=== PATIENT | male | born 1960 | race Caucasian/White ===

== ENCOUNTER 2017-12-22 12:47 | Inpatient (IN) | payer OTHER ==
[~2017-12-22] VITALS: Ht 175.3 cm; Wt 59.9 kg
[2017-12-22] MEDS ORDERED: methylPREDNISolone SOD SUCC 125 MG/2ML VIAL ONE (12:53)
[2017-12-22] MEDS ORDERED: ALBUTEROL FS 2.5 MG/3 ML VIAL.NEB ONE (12:56)
[2017-12-22] MEDS ORDERED: IPRATROPIUM NEB FS 0.5 MG/2.5 ML AMPUL.NEB ONE (12:56)
--- NOTE | 2017-12-22 12:57 | NUR ---
SOB X TODAY, HX OF COPD, D/C FROM [facility] YESTERDAY FOR COPD. PT LABORED BREATHING, USING ACCESSORY MUSCLE, NON PRODUCTIVE COUGH, WHEEZING. GETTING BREATHING TX. PT SEEN & EVAL'D DR. HUTTON. ON MONITOR. MEDICATED PER ERMD ORDER. WILL CONT TO MONITOR.
[2017-12-22] MEDS ORDERED: ALBUTEROL FS 2.5 MG/3 ML VIAL.NEB CONTNEB ONE (13:00)
[2017-12-22] MEDS ORDERED: IPRATROPIUM NEB FS 0.5 MG/2.5 ML AMPUL.NEB NEB ONE (13:00)
[2017-12-22] MEDS ORDERED: methylPREDNISolone SOD SUCC 125 MG/2ML VIAL IV ONE (13:00)
[2017-12-22 13:21] LABS: BASOPHILS % (AUTO) 0.3 % (0.0-2.0); CALCIUM, SERUM 8.3 mg/dL (8.5-10.1); CARBON DIOXIDE 37 mmol/L (21-32); CHLORIDE 100 mmol/L (98-107); CREATININE 0.9 mg/dL (0.6-1.3); EOSINOPHILS % (AUTO) 2.7 % (0.0-6.0); GLUCOSE 99 mg/dL (74-106); HEMATOCRIT 42 % (39-51); HEMOGLOBIN 13.4 g/dL (13.5-17.5); LYMPHOCYTES # (AUTO) 1.1 /CMM (0.8-4.8); LYMPHOCYTES % (AUTO) 20.2 % (20.0-44.0); MEAN CORPUSCULAR HGB CONC 32 g/dl (31.0-36.0); MEAN CORPUSCULAR VOLUME 102 fL (80-96); MONOCYTES # (AUTO) 0.5 /CMM (0.1-1.30); MONOCYTES % (AUTO) 9.2 % (2.0-12.0); NEUTROPHILS # (AUTO) 3.7 /CMM (1.8-8.9); NEUTROPHILS % (AUTO) 67.6 % (43.0-81.0); PLATELET COUNT (AUTO) 149 /CMM (150-450); POTASSIUM 3.9 mmol/L (3.5-5.1); RDW COEFFICIENT OF VARIATION 14.8 (11.5-15.0); RED BLOOD CELL COUNT(AUTO) 4.07 MIL/uL (4.5-6.0); SODIUM SERUM 135 mmol/L (136-145); UREA NITROGEN, BLOOD 25 mg/dL (7-18); WHITE BLOOD COUNT (AUTO) 5.4 K/uL (4.3-11.0)
[2017-12-22 13:29] LABS: TROPONIN I < 0.017 ng/mL (0.00-0.056)
--- NOTE | 2017-12-22 13:31 | NUR ---
PT STILL GETTING BREATHING TX. PT STS " I FEEL A LITTLE BIT BETTER ". VSS. NO ACUTE DISTRESS NOTED @ THIS TIME. WILL CONT TO MONITOR.
[2017-12-22 13:33] LABS: ALANINE AMINOTRANSFERASE 43 U/L (12-78); ALBUMIN 3.7 g/dL (3.4-5.0); ALKALINE PHOSPHATASE 44 U/L (46-116); ASPARTATE AMINOTRANSFERASE 30 U/L (15-37); B-TYPE NATRIURETIC PEPTIDE 380 PG/ML (0-125); BILIRUBIN,DIRECT 0.3 mg/dL (0.0-0.2); BILIRUBIN,TOTAL 1.3 mg/dL (0.2-1.0); TOTAL PROTEIN, SERUM 6.9 g/dL (6.4-8.2)
--- NOTE | 2017-12-22 13:53 | NUR ---
PAGED EPIC FOR PANEL
[2017-12-22] MEDS ORDERED: LEVOFLOXACIN 750 MG /D5W 150ML 150 ML IV ONE (14:00)
--- NOTE | 2017-12-22 14:43 | NUR ---
CALLED NURSE SUP FOR TELE BED
--- NOTE | 2017-12-22 15:21 | NUR ---
REPORT GIVEN TO SALO PLASENCIA FOR SOL UPON ADMISSION.
[2017-12-22] MEDS ORDERED: ALBU18HF2 IH (15:28)
[2017-12-22] MEDS ORDERED: STRIBILD PO (15:28)
[2017-12-22] MEDS ORDERED: METH4TAB3 PO (15:28)
[2017-12-22] MEDS ORDERED: DAPS100T2 PO (15:28)
[2017-12-22] MEDS ORDERED: LEVO500T75 PO (15:28)
--- NOTE | 2017-12-22 15:30 | NUR ---
CHANGE OF SHIFT REPORT PT RESTING COMFORTABLY IN BED. NO S/S OR C/O PAIN OR DISTRESS NOTED. SIDE RAILS UP X2, CALL LIGHT LEFT WITHIN REACH. PT KEPT CLEAN, DRY, AND COMFORTABLE. NO SIGNIFICANT CHANGES FROM PREVIOUS SHIFT. WILL GIVE REPORT TO RODRIGO PLASENCIA.
[2017-12-22 16:00] VITALS: BP 136/69
[2017-12-22] MEDS ORDERED: IV NS 0.9% 1,000 ML IV PRN (17:53)
[2017-12-22] MEDS ORDERED: ACETAMINOPHEN 325 MG TABLET PO PRN (18:00)
[2017-12-22] MEDS ORDERED: HYDROCODONE/APAP 5/325MG 1 EACH TABLET PO PRN (18:00)
[2017-12-22] MEDS ORDERED: ONDANSETRON HCL/PF 4 MG/2 ML VIAL IVP PRN (18:00)
[2017-12-22] MEDS ORDERED: Z GUARD REMEDY 2 OZ OINT TP PRN (18:00)
[2017-12-22] MEDS: MORPHINE SULFATE INJ 4 MG/ML DISP.SYRIN IV PRN (18:41)
[2017-12-22] MEDS: ENOXAPARIN SODIUM 40 MG/0.4 ML DISP.SYRIN SQ SCH (18:45)
--- NOTE | 2017-12-22 18:52 | NUR ---
CHANGE OF SHIFT REPORT PT RESTING COMFORTABLY IN BED. NO S/S OR C/O PAIN OR DISTRESS NOTED. SIDE RAILS UP X2, CALL LIGHT LEFT WITHIN REACH. PT KEPT CLEAN, DRY, AND COMFORTABLE. NO SIGNIFICANT CHANGES SINCE ADMISSION. WILL GIVE REPORT TO RODRIGO PLASENCIA.
--- NOTE | 2017-12-22 18:53 | NUR ---
TELE ADMIT FROM ER AFTER REPORT RECEIVED FROM TRISH PLASENCIA. PATIENT ORIENTED TO PRIMARY RN, UNIT, ROOM, BED, AND UNIT POLICIES REGARDING PATIENT CARE AND VISITING HOURS. PATIENT NOW ON CONTINUOUS TELEMETRY MONITORING. READING ON ARRIVAL IS SR 85. PATIENT PLACED ON BEDSIDE 02, WEIGHED BY BED SCALE AND ENCOURAGED TO CALL IF HE NEEDS ANYTHING. ALL QUESTIONS AND CONCERNS ADDRESSED. PATIENT VERBALIZED UNDERSTANDING. Addendum: 12/22/17 at 1856 by SALO PERLA RN CHANGE TIME. [id number]
--- NOTE | 2017-12-22 19:20 | NUR ---
COLD PRESS OPERATOR OPENING NOTES RECEIVED PATIENT SITTING IN BED, AWAKE ALERT AND ORIENTED X4, ABLE TO MAKE NEEDS KNOWN , RESPIRATIONS ARE EVEN AND UNLABORED AT THIS TIME WITH EQUAL RISE AND FALL OF CHEST. ON 02 5L VIA NC O2 SAT 96-98%. DENIES ANY PAIN OR DISCOMFORT AT THIS TIME,IV SITE TO LEFT AC #18 G INTACT AND PATENT, NO REDNESS, NO INFILTRATION PRESENT, IVF RUNNING ORDERED. ORIENTED TO STAFF AND CALL LIGHT KEPT WITHIN REACH, SAFETY PRECAUTIONS IN PLACE, LOW BED AND LOCKED. ALL NEEDS ATTENDED AT THIS TIME, WILL CONTINUE TO MONITOR.
--- NOTE | 2017-12-22 19:21 | NUR ---
MEDICAL BILLING SERVICE NOTES ON APARTMENT HOTEL MANAGER SR 76
[2017-12-22] MEDS: CEFTRIAXONE 1 G in IV D5W 50 ML IV SCH (19:29)
[2017-12-22 20:00] VITALS: BP 134/85
[2017-12-22] MEDS: AZITHROMYCIN 500 MG in IV D5W 250 ML IV SCH (20:15)
[2017-12-22] MEDS: ALBUTEROL FS 2.5 MG/0.5 ML VIAL.NEB NEB SCH (20:23)
[2017-12-22] MEDS: IPRATROPIUM NEB FS 0.5 MG/2.5 ML AMPUL.NEB NEB SCH (20:24)
[2017-12-22] MEDS ORDERED: FLUCONAZOLE IN NS 100 MG in PREMIX 1 EA IV SCH ×2 (20:30)
[2017-12-22] MEDS: MONTELUKAST SODIUM (10MG) 10 MG TABLET PO SCH (21:21)
[2017-12-23] VITALS: BP 130/89
[2017-12-23] MEDS: MORPHINE SULFATE INJ 4 MG/ML DISP.SYRIN IV PRN ×4 (00:04→20:07)
--- NOTE | 2017-12-23 00:05 | NUR ---
internist notes patient complaint of pain to head 01/06 requesting for morphine vital signs assessed noted b/p- 130/89, heart rate 72. resp 18 spo2 95% on 3L temp 97.8 no distress present at this time
[2017-12-23 04:00] VITALS: BP 134/73
--- NOTE | 2017-12-23 04:52 | NUR ---
PROFESSIONAL SHOPPER NOTES PATIENT COMPLAINT OF PAIN 10/10 HEADACHE. REQUESTING FOR MORPHINE. PRN GIVEN ORDERED VITAL SIGNS ASSESSED WNL B/P-134/73,HR 66,RESP20 TEMP98.2,98% 3LVIA NC WILL CONTINUE TO MONITOR FOR EFFECTIVENESS
--- NOTE | 2017-12-23 06:27 | NUR ---
SUBWAY GUARD CLOSING NOTES PATIENT IN BED,AWAKE ALERT AND ORIENTED X4,RESPIRATIONS EVEN AND UNLABORED WITH EQUAL RISE AND FALL OF CHEST ON 02 3L VIA NC SPO2 AT 98%. IV SITE TO LEFT AC #18 INTACT AND PATENT, NO REDNESS, NO INFILTRATION PRESENT, IVF RUNNING ORDERED, DENIES ANY PAIN OF DISCOMFORT AT THIS TIME, ALL NEEDS ATTENDED, ON CHIMNEY MECHANIC SR 66, CALL LIGHT KEPT WITHIN REACH , SAFETY PRECAUTIONS IN PLACE, REMAINS SAFE AND COMFORTABLE AT THIS TIME, WILL CONTINUE TO MONITOR AND ENDORSE TO NEXT SHIFT FOR CONTINUITY OF CARE.
[2017-12-23 07:14] LABS: BASOPHILS % (AUTO) 0.1 % (0.0-2.0); EOSINOPHILS % (AUTO) 0.8 % (0.0-6.0); HEMATOCRIT 37 % (39-51); HEMOGLOBIN 12.2 g/dL (13.5-17.5); LYMPHOCYTES # (AUTO) 0.8 /CMM (0.8-4.8); LYMPHOCYTES % (AUTO) 21.1 % (20.0-44.0); MEAN CORPUSCULAR HGB CONC 33 g/dl (31.0-36.0); MEAN CORPUSCULAR VOLUME 102 fL (80-96); MONOCYTES # (AUTO) 0.4 /CMM (0.1-1.30); MONOCYTES % (AUTO) 11.2 % (2.0-12.0); NEUTROPHILS # (AUTO) 2.4 /CMM (1.8-8.9); NEUTROPHILS % (AUTO) 66.8 % (43.0-81.0); PLATELET COUNT (AUTO) 146 /CMM (150-450); RDW COEFFICIENT OF VARIATION 14.7 (11.5-15.0); WHITE BLOOD COUNT (AUTO) 3.7 K/uL (4.3-11.0)
[2017-12-23 07:20] LABS: BILIRUBIN,TOTAL 0.7 mg/dL (0.2-1.0); MAGNESIUM 2.1 mg/dL (1.8-2.4); PHOSPHORUS 3.3 mg/dL (2.5-4.9)
[2017-12-23] MEDS: IPRATROPIUM NEB FS 0.5 MG/2.5 ML AMPUL.NEB NEB SCH ×4 (07:28→19:49)
[2017-12-23] MEDS: ALBUTEROL FS 2.5 MG/0.5 ML VIAL.NEB NEB SCH ×4 (07:28→19:49)
[2017-12-23 08:00] VITALS: BP 128/78
[2017-12-23] MEDS: methylPREDNISolone SOD SUCC 125 MG/2ML VIAL IV SCH ×3 (09:30→16:21)
[2017-12-23] MEDS: PANTOPRAZOLE 40 MG TABLET.DR PO SCH (09:30)
--- NOTE | 2017-12-23 10:40 | NUR ---
Nursing notes PATIENT IN BED,AWAKE ALERT AND ORIENTED X4,RESPIRATIONS EVEN AND UNLABORED WITH EQUAL RISE AND FALL OF CHEST ON 02 3L VIA NC SPO2 AT 98%. IV SITE TO LEFT AC #18 INTACT AND PATENT, NO REDNESS, NO INFILTRATION PRESENT, IVF RUNNING ORDERED, DENIES ANY PAIN OF DISCOMFORT AT THIS TIME, ALL NEEDS ATTENDED, ON COMMERCIAL LINES ACCOUNT MANAGER SR 66, CALL LIGHT KEPT WITHIN REACH , SAFETY PRECAUTIONS IN PLACE, REMAINS SAFE AND COMFORTABLE AT THIS TIME, WILL CONTINUE TO MONITOR
--- NOTE | 2017-12-23 10:41 | NUR ---
Nursing notes spoke to passenger representative from [facility] request that patient documents be sent over to them once the patient gets discharged. phone number [phone] fax number [phone].
[2017-12-23 16:00] VITALS: BP 144/89
[2017-12-23] MEDS: CEFTRIAXONE 1 G in IV D5W 50 ML IV SCH (17:58)
[2017-12-23] MEDS: AZITHROMYCIN 500 MG in IV D5W 250 ML IV SCH (18:36)
--- NOTE | 2017-12-23 19:20 | NUR ---
MS RN OPENING NOTE Patient was seen sitting at the edge of the bed AAOx4, breathing on 3L O2 NC with no SOB, and no signs of acute distress. NS is running at 75ml/hr through the left AC. Bed is low/locked, two side rails up, and call hess within reach. Will continue to monitor.
[2017-12-23 20:00] VITALS: BP 129/77
--- NOTE | 2017-12-23 20:07 | NUR ---
MS RN NOTE - Morphine Patient requested morphine for pain in his neck, back, and abdomen. Patient states that his pain is a 10/10 and that the abdominal pain is from frequent coughing (dx of COPD exacerbation). No PO pain meds available except Tylenol. 4mg of IV morphine was given per orders. Will continue to monitor.
[2017-12-23] MEDS: FLUCONAZOLE IN NS,PREMIX 400 MG in PREMIX 1 EA IV SCH ×2 (20:11)
[2017-12-23] MEDS: ENOXAPARIN SODIUM 40 MG/0.4 ML DISP.SYRIN SQ SCH (20:12)
[2017-12-23 20:48] VITALS: BP 129/72
[2017-12-23] MEDS: MONTELUKAST SODIUM (10MG) 10 MG TABLET PO SCH (22:53)
--- NOTE | 2017-12-23 23:30 | NUR ---
MS RN NOTE - Pt refused IV fluids After patient received IV antibiotics, he asked to be disconnected from his IV for the rest of the night. I informed the patient that the doctor ordered continuous IV fluids of normal saline and educated him on the purpose of supplemental IV hydration, as well as its effects on vital signs and lab values. Patient said that he understood but still refused IV fluids.
[2017-12-24] MEDS: MORPHINE SULFATE INJ 4 MG/ML DISP.SYRIN IV PRN ×6 (00:13→20:51)
--- NOTE | 2017-12-24 00:13 | NUR ---
MS RN NOTE - Morphine Patient requested morphine for pain in his neck, back, and abdomen. Patient states that his pain is a 9/10 and that the abdominal pain is from frequent coughing (dx of COPD exacerbation). No PO pain meds available except Tylenol. 4mg of IV morphine was given per orders. Patient tolerated last dose of morphine well with no adverse side effects or decrease in respirations. Will continue to monitor.
--- NOTE | 2017-12-24 04:19 | NUR ---
MS RN NOTE - Morphine Patient requested morphine for pain in his head, neck, back, and abdomen. Patient states that his pain is a 10/10 and that the abdominal pain is from frequent coughing (dx of COPD exacerbation). No PO pain meds available except Tylenol. 4mg of IV morphine was given per orders. Patient tolerated last dose of morphine well with no adverse side effects or decrease in respirations. Will continue to monitor.
--- NOTE | 2017-12-24 07:31 | NUR ---
MS RN CLOSING NOTE Patient is AAOx4, breathing on 2L O2 NC with no SOB, and no signs of acute distress. Patient slept intermittently overnight but had no complications and remains in stable condition. Bed is low/locked, two side rails up, and call hess within reach. Patient care endorsed to day shift nurse.
--- NOTE | 2017-12-24 07:48 | NUR ---
MS RN OPENING NOTES RECEIVED PT SITTING AT THE EDGE OF BED. PT IS A/O X4, AFEBRILE. RESPIRATIONS ARE EVEN AND UNLABORED, NOT IN ANY ACUTE DISTRESS NOTED. CURRENTLY ON O2 @2L/MIN VIA NC SATURATING AT 94%. PT C/O PAIN TO ABDOMEN FROM "COUGHING TOO MUCH." PT C/O PAIN 11/06 AND PT AWARE OF TIME OF NEXT PAIN MEDICATION DUE. PT STATES, "I WILL WAIT FOR IT." PT IS AMBULATORY, ABLE TO MAKE NEEDS KNOWN. IV SITE INTACT, NO INFILTRATION NOTED. DRESSING KEPT CLEAN AND DRY. PT REFUSES TO RECEIVE IV FLUIDS. EXPLAINED THE RISKS AND BENEFITS, STILL NOTED WITH REFUSAL. EDUCATED PT TO DRINK FLUIDS TOLERATED TO STAY HYDRATED, PT VERBALIZED UNDERSTANDING. SAFETY MEASURES ARE IN PLACE. CALL LIGHT IS LEFT WITHIN REACH. WILL CONTINUE TO MONITOR THROUGHOUT SHIFT FOR CONTINUITY OF CARE.
[2017-12-24 08:00] VITALS: BP_SYST 131; BP_DIAS 77; BP_DIAS 78
[2017-12-24] MEDS: IPRATROPIUM NEB FS 0.5 MG/2.5 ML AMPUL.NEB NEB SCH ×4 (08:14→20:08)
[2017-12-24] MEDS: ALBUTEROL FS 2.5 MG/0.5 ML VIAL.NEB NEB SCH ×4 (08:14→20:08)
[2017-12-24] MEDS: PANTOPRAZOLE 40 MG TABLET.DR PO SCH (08:20)
[2017-12-24] MEDS: methylPREDNISolone SOD SUCC 125 MG/2ML VIAL IV SCH ×3 (08:21→16:49)
--- NOTE | 2017-12-24 18:31 | NUR ---
MS RN CLOSING NOTES ALL DUE MEDS GIVEN, NEEDS MET AND RENDERED. PT REMAINS A/O X4, AFEBRILE. RESPIRATIONS ARE EVEN AND UNLABORED, NOT IN ANY ACUTE DISTRESS NOTED. PAIN CONTROLLED BY MORPHINE. DENIES ANY N/V AT THIS TIME. CURRENTLY ON O2 @3L/MIN VIA NC, SATURATING 96%. IV SITE INTACT, NO INFILTRATION NOTED. DRESSING KEPT CLEAN AND DRY. PT REFUSES IV FLUIDS AT THIS TIME. ENCOURAGED PT TO DRINK TOLERATED TO STAY HYDRATED. SAFETY MEASURES ARE IN PLACE. REMINDED PT TO USE CALL LIGHT WHEN ASSISTANCE IS NEEDED, CALL LIGHT IS LEFT WITHIN REACH. WILL ENDORSE TO NEXT SHIFT FOR CONTINUITY OF CARE.
[2017-12-24] MEDS: CEFTRIAXONE 1 G in IV D5W 50 ML IV SCH (18:43)
--- NOTE | 2017-12-24 19:00 | NUR ---
MS RN OPENING NOTE RECEIVE PATIENT AWAKE IN BED, A/O X 3, NO SOB OR DISTRESS NOTED, CALL LIGHT WITHIN REACH. SAFETY MEASURES IMPLEMENTED. WILL CONTINUE TO MONITOR THROUGHOUT SHIFT. Addendum: 12/25/17 at 0423 by DENNY DOS SANTOS RN PT REFUSED IV FLUIDS NS DESPITE EXPLAINING RISKS AND BENEFITS PER PT HE IS DRINKING WELL
[2017-12-24 20:00] VITALS: BP 147/82
[2017-12-24] MEDS ORDERED: AZITHROMYCIN 250 MG TABLET PO SCH (20:00)
[2017-12-24] MEDS: ENOXAPARIN SODIUM 40 MG/0.4 ML DISP.SYRIN SQ SCH (20:23)
[2017-12-24] MEDS: FLUCONAZOLE IN NS,PREMIX 400 MG in PREMIX 1 EA IV SCH ×2 (20:24)
[2017-12-24] MEDS: MONTELUKAST SODIUM (10MG) 10 MG TABLET PO SCH (21:32)
[2017-12-25] MEDS: MORPHINE SULFATE INJ 4 MG/ML DISP.SYRIN IV PRN ×3 (00:52→10:05)
--- NOTE | 2017-12-25 06:15 | NUR ---
MS RN CLOSING NOTES ASLEEP AND EASILY AWAKEN, STABLE, NOT IN DISTRESS. 2LPM VIA NC 02 SAT AT 96%, RESPIRATION EVEN AND UNLABORED. KEPT CLEAN AND DRY AND COMFORTABLE, ALL NURSING CARE RENDERED. NEEDS ATTENDED AND ANTICIPATED.NO COMPLAIN OF PAIN AT THIS TIME. ON LOW BED AT ALL TIMES TO ENSURE SAFETY. SAFE HAZARD FREE ENVIRONMENT PROVIDED. CALL LIGHT WITHIN EASY TO REACH. WILL ENDORSE NEXT SHIFT CONTINUITY OF CARE.
--- NOTE | 2017-12-25 06:17 | NUR ---
REFUSES TO RECEIVE IVF NS FLUIDS. DESPITE EXPLAINING RISKS AND BENEFITS, STILL REFUSE, EDUCATED PT TO DRINK FLUIDS TOLERATED TO STAY HYDRATED, PT VERBALIZED UNDERSTANDING.
[2017-12-25 06:54] LABS: CALCIUM, SERUM 8.7 mg/dL (8.5-10.1); CREATININE 0.8 mg/dL (0.6-1.3); MAGNESIUM 2.2 mg/dL (1.8-2.4); PHOSPHORUS 4.4 mg/dL (2.5-4.9); POTASSIUM 4.8 mmol/L (3.5-5.1)
--- NOTE | 2017-12-25 07:25 | NUR ---
MS RN OPENING NOTES RECEIVED PT SITTING AT THE EDGE OF BED. PT IS A/O X4, AFEBRILE. RESPIRATIONS ARE EVEN AND UNLABORED, NOT IN ANY ACUTE DISTRESS NOTED. CURRENTLY ON O2 @2L/MIN VIA NC SATURATING AT 95%. PT IS AMBULATORY, ABLE TO MAKE NEEDS KNOWN. IV SITE INTACT, NO INFILTRATION NOTED. DRESSING KEPT CLEAN AND DRY. PT REFUSES TO RECEIVE IV FLUIDS. EXPLAINED THE RISKS AND BENEFITS, STILL NOTED WITH REFUSAL. EDUCATED PT TO DRINK FLUIDS TOLERATED TO STAY HYDRATED, PT VERBALIZED UNDERSTANDING. SAFETY MEASURES ARE IN PLACE. CALL LIGHT IS LEFT WITHIN REACH. WILL CONTINUE TO MONITOR THROUGHOUT SHIFT FOR CONTINUITY OF CARE.
[2017-12-25] MEDS: IPRATROPIUM NEB FS 0.5 MG/2.5 ML AMPUL.NEB NEB SCH (07:35)
[2017-12-25] MEDS: ALBUTEROL FS 2.5 MG/0.5 ML VIAL.NEB NEB SCH (07:35)
[2017-12-25 07:47] LABS: HEMATOCRIT 40 % (39-51); HEMOGLOBIN 13.5 g/dL (13.5-17.5); LYMPHOCYTES % (AUTO) 8.2 % (20.0-44.0); MEAN CORPUSCULAR HGB CONC 34 g/dl (31.0-36.0); MEAN CORPUSCULAR VOLUME 101 fL (80-96); NEUTROPHILS % (AUTO) 87.8 % (43.0-81.0); PLATELET COUNT (AUTO) 167 /CMM (150-450); RDW COEFFICIENT OF VARIATION 14.4 (11.5-15.0); RED BLOOD CELL COUNT(AUTO) 3.99 MIL/uL (4.5-6.0); WHITE BLOOD COUNT (AUTO) 5.5 K/uL (4.3-11.0)
[2017-12-25 07:48] LABS: LYMPHOCYTES # (AUTO) 0.5 /CMM (0.8-4.8); MONOCYTES # (AUTO) 0.2 /CMM (0.1-1.30); NEUTROPHILS # (AUTO) 4.8 /CMM (1.8-8.9)
[2017-12-25] MEDS: PANTOPRAZOLE 40 MG TABLET.DR PO SCH (08:10)
[2017-12-25] MEDS ORDERED: predniSONE 20 MG TABLET PO SCH (09:00)
[2017-12-25] MEDS ORDERED: PRED20TA PO (10:40)
[2017-12-25] MEDS ORDERED: FLUT1DIS3 INH (10:40)
--- NOTE | 2017-12-25 11:30 | NUR ---
MS RAIL ENGINEER NOTE PT DISCHARGED TO HOME IN MEDICALLY STABLE CONDITION ACCOMPANIED BY SISTER JULITA. PT IS A/O X4, ABFEBRILE. RESPIRATIONS ARE EVEN AND UNLABORED, NOT IN ANY ACUTE DISTRESS NOTED. PUPILS ARE REACTIVE TO LIGHT. PT DENIES ANY PAIN, SOB, N/V. ABDOMEN IS SOFT AND NONDISTENDED. BOWEL SOUNDS ARE PRESENT IN ALL 4 QUADRANTS UPON AUSCULTATION. DENIES ANY BLADDER DISCOMFORT. IV SITE REMOVED, APPLIED PRESSURE AND TOLERATED WELL. ID BAND REMOVED. EXPLAINED DISCHARGE PAPERWORK TO PT WITH VERBAL AND WRITTEN UNDERSTANDING. ALL BELONGINGS SENT HOME WITH PT. FAXED PRESCRIPTION TO MELI FROM [facility] (PER PT'S CHOICE). PER MELI, PRESCRIPTION RECEIVED. PT LEFT IN STABLE CONDITION.
[2017-12-25] MEDS ORDERED: FLUCONAZOLE (100 MG) 100 MG TABLET PO SCH (21:00)
== END 2017-12-25 11:30 | disposition home or self-care (01) | DRG 140 ==
LOC: ER 12:49 → TELE 15:32 → MED 12-23 15:16
PROVIDERS: ADMIT Nurse Practitioner Acute Care; ATTEND Nurse Practitioner Acute Care
DX: J44.1 Chronic obstructive pulmonary disease with (acute) exacerbation (principal); N17.0 Acute kidney failure with tubular necrosis; J16.8 Pneumonia due to other specified infectious organisms; E87.3 Alkalosis; I27.20 Pulmonary hypertension, unspecified; B48.8 Other specified mycoses; E83.51 Hypocalcemia; E87.1 Hypo-osmolality and hyponatremia; J44.0 Chronic obstructive pulmonary disease with (acute) lower respiratory infection; J22 Unspecified acute lower respiratory infection; F17.210 Nicotine dependence, cigarettes, uncomplicated; Z88.2 Allergy status to sulfonamides; I34.0 Nonrheumatic mitral (valve) insufficiency; E80.6 Other disorders of bilirubin metabolism
CPT/HCPCS: 36415; 71045-TC; 80048-TC; 80053-TC; 80061-TC; 80076-TC; 83605-TC; 83735-TC; 83880; 84100-TC; 84484-TC; 85025-TC; 87040-TC; 87070-TC; 87081-TC; 93307-TC; 94799-TC; A4216; A4606; J0456; J0696; J1450; J1650; J1956; J2270; J2930; J7030; J7060; Z7610

== ENCOUNTER 2017-12-29 13:22 | Inpatient (IN) | payer OTHER ==
[~2017-12-29] VITALS: Ht 175.3 cm; Wt 63.5 kg
[~2017-12-29 13:22] MED LIST: ALBU18HF2 IH; DAPS100T2 PO; FLUT1DIS3 INH; PRED20TA PO; STRIBILD PO
[2017-12-29 14:49] LABS: BASOPHILS # (AUTO) 0.1 /CMM (0.0-0.2); BASOPHILS % (AUTO) 0.6 % (0.0-2.0); EOSINOPHILS % (AUTO) 0.3 % (0.0-6.0); HEMATOCRIT 41 % (39-51); HEMOGLOBIN 13.8 g/dL (13.5-17.5); LYMPHOCYTES # (AUTO) 0.7 /CMM (0.8-4.8); LYMPHOCYTES % (AUTO) 6.5 % (20.0-44.0); MEAN CORPUSCULAR HGB CONC 34 g/dl (31.0-36.0); MEAN CORPUSCULAR VOLUME 100 fL (80-96); MONOCYTES # (AUTO) 0.5 /CMM (0.1-1.30); MONOCYTES % (AUTO) 4.5 % (2.0-12.0); NEUTROPHILS # (AUTO) 9.4 /CMM (1.8-8.9); NEUTROPHILS % (AUTO) 88.1 % (43.0-81.0); PLATELET COUNT (AUTO) 208 /CMM (150-450); RDW COEFFICIENT OF VARIATION 13.8 (11.5-15.0); RED BLOOD CELL COUNT(AUTO) 4.06 MIL/uL (4.5-6.0); WHITE BLOOD COUNT (AUTO) 10.7 K/uL (4.3-11.0)
[2017-12-29 14:59] LABS: CALCIUM, SERUM 8.8 mg/dL (8.5-10.1); CARBON DIOXIDE 35 mmol/L (21-32); CHLORIDE 102 mmol/L (98-107); CREATININE 1.1 mg/dL (0.6-1.3); GLUCOSE 115 mg/dL (74-106); POTASSIUM 4.6 mmol/L (3.5-5.1); SODIUM SERUM 137 mmol/L (136-145); UREA NITROGEN, BLOOD 26 mg/dL (7-18)
[2017-12-29] MEDS ORDERED: IPRATROPIUM NEB FS 0.5 MG/2.5 ML AMPUL.NEB NEB ONE (15:00)
[2017-12-29] MEDS ORDERED: ALBUTEROL FS 2.5 MG/3 ML VIAL.NEB NEB ONE (15:00)
[2017-12-29 15:06] LABS: TROPONIN I < 0.017 ng/mL (0.00-0.056)
[2017-12-29] MEDS ORDERED: IPRATROPIUM NEB FS 0.5 MG/2.5 ML AMPUL.NEB ONE (15:10)
[2017-12-29] MEDS ORDERED: ALBUTEROL FS 2.5 MG/3 ML VIAL.NEB ONE (15:10)
[2017-12-29 15:11] LABS: ALANINE AMINOTRANSFERASE 31 U/L (12-78); ALBUMIN 3.5 g/dL (3.4-5.0); ALKALINE PHOSPHATASE 54 U/L (46-116); ASPARTATE AMINOTRANSFERASE 13 U/L (15-37); B-TYPE NATRIURETIC PEPTIDE 114 PG/ML (0-125); BILIRUBIN,DIRECT 0.2 mg/dL (0.0-0.2); BILIRUBIN,TOTAL 0.7 mg/dL (0.2-1.0); TOTAL PROTEIN, SERUM 6.9 g/dL (6.4-8.2)
--- NOTE | 2017-12-29 15:16 | NUR ---
RT AT BS FOR BREATHING TX.
--- NOTE | 2017-12-29 15:58 | NUR ---
CALLED [employer] RIG SITE ENGINEER WAS PAGED.
[2017-12-29] MEDS ORDERED: LEVOFLOXACIN 750 MG /D5W 150ML PIGGYBACK IV ONE (16:00)
[2017-12-29] MEDS ORDERED: methylPREDNISolone SOD SUCC 125 MG/2ML VIAL IV ONE (16:00)
--- NOTE | 2017-12-29 16:00 | NUR ---
CALLED NURSING CHEMICAL EQUIPMENT REPAIRER REQUESTED A BED.
[2017-12-29 16:01] LABS: ABG BASE EXCESS 1.3 mmol/L; ABG OXYGEN SATURATION 92.7 % (92.0-98.5); ABG PCO2 39.4 mmHg (35.0-45.0); ABG PO2 66.8 mmHg (75.0-100.0); AaDO2 35.8 mmHg; COHb 3.7 % (0.5-1.5); MetHb 2.6 % (0.0-1.5); O2Hb 86.9 % (94.0-97.0); SITE, ABG Right Radial; VENT MODE, BG RA
[2017-12-29] MEDS ORDERED: methylPREDNISolone SOD SUCC 125 MG/2ML VIAL ONE (16:17)
[2017-12-29] MEDS ORDERED: MORPHINE SULFATE INJ 2 MG/ML DISP.SYRIN IV ONE (16:30)
[2017-12-29] MEDS ORDERED: MORPHINE SULFATE INJ 4 MG/ML DISP.SYRIN ONE (16:38)
--- NOTE | 2017-12-29 16:52 | NUR ---
REPORT GIVEN TO UCHE FELICIANO FOR 314.
[2017-12-29] MEDS ORDERED: ZOLPIDEM TARTRATE 5 MG TABLET PO PRN (17:30)
[2017-12-29] MEDS ORDERED: ACETAMINOPHEN 325 MG TABLET PO PRN ×2 (17:30)
[2017-12-29] MEDS ORDERED: MAG HYDROX/AL HYDROX/SIMETH 30 ML UDC PO PRN ×2 (17:30)
[2017-12-29] MEDS ORDERED: MAGNESIUM HYDROXIDE 30 ML UDC PO PRN ×2 (17:30)
[2017-12-29] MEDS ORDERED: ONDANSETRON HCL/PF 4 MG/2 ML VIAL IVP PRN ×2 (17:30)
[2017-12-29] MEDS ORDERED: HYDROCODONE/APAP 5/325MG 1 EACH TABLET PO PRN ×2 (17:30)
[2017-12-29] MEDS ORDERED: Z GUARD REMEDY 2 OZ OINT TP PRN ×2 (17:30)
[2017-12-29] MEDS ORDERED: IV NS 0.9% 1,000 ML IV PRN (17:45)
--- NOTE | 2017-12-29 17:50 | NUR ---
tele gate services supervisor: admission admitted this 57 yr old male pt [facility] with dx: sob, copd exacerbation. awake, a/ox4; ambulatory. pt refused to wear gown when offered, pt wearing his own clothes upon arrival. oriented to room and surroundings. place pt on tele sr=[id number]. dinner ordered. orders acknowledged. vss. instructed to call for assistance. will monitor.
[2017-12-29 18:00] VITALS: BP 150/78
[2017-12-29] MEDS: ENOXAPARIN SODIUM 40 MG/0.4 ML DISP.SYRIN SQ SCH (18:20)
--- NOTE | 2017-12-29 18:20 | NUR ---
tele travel physical therapist: notes offered lovenox sq shot, pt refused, stated, "is that given in the stomach, no i had that before and i get a bruise on my stomach."
--- NOTE | 2017-12-29 19:10 | NUR ---
tele alignment mechanic: notes report given to leisa villarreal) at bedside for continuity of care.
[2017-12-29] MEDS: ALBUTEROL FS 2.5 MG/0.5 ML VIAL.NEB NEB SCH (19:20)
[2017-12-29] MEDS ORDERED: PNEUMOCOCCAL 23-VAL P-SAC VAC 0.5 ML VIAL SQ ONE (19:30)
--- NOTE | 2017-12-29 19:30 | NUR ---
MS RN OPENING NOTES PT AWAKE A/O X4 ; AMBULATORY, PT ON TELE SR 82.IV R HAND #20. PT REFUSED IV FLUID 0.9 % NS. NO DISTRESS NOTED AT THIS TIME. SAFETY PRECAUTIONS IN PLACE, CALL LIGHT WITHIN REACH. WILL CONTINUE TO MONITOR .
[2017-12-29 20:00] VITALS: BP 141/75
--- NOTE | 2017-12-29 21:00 | NUR ---
PT COMPLAINS OF PAIN 01/06. PRN NORCO WAS OFFERED BUT PT STATES IT DOES NOT WORK FOR HIM.
--- NOTE | 2017-12-29 21:30 | NUR ---
PT COMPLAINS OF PAIN AND REFUSES PRN NORCO. DR. YOU IS AWARE. TELEPHONE ORDER MORPHINE 2MG IV Q4H PRN WAS GIVEN. ORDER CARRIED OUT.
[2017-12-29] MEDS: MORPHINE SULFATE INJ 4 MG/ML DISP.SYRIN IV PRN (22:23)
--- NOTE | 2017-12-29 22:37 | NUR ---
PT AGREED TO GET FLU AND PNEUMOCOCCAL VACCINE. LOT NUMBERS, EXP. DATES WERE DOCUMENTED. PT STATES THAT HE HAS NO REACTION ON FLU VACCINE AND GETS IT EVERY SEASON.
[2017-12-30 01:00] VITALS: BP 127/76
[2017-12-30 04:00] VITALS: BP 116/74
[2017-12-30] MEDS: MORPHINE SULFATE INJ 4 MG/ML DISP.SYRIN IV PRN ×6 (04:14→21:00)
[2017-12-30 05:09] LABS: *BASOS 0 % (Not Estab.); *EOS 0 % (Not Estab.); *HCT 41.5 % (37.5-51.0); *HGB 14.2 g/dL (13.0-17.7); *IMMATURE GRANULOCYTES 0 % (Not Estab.); *LYMPHOCYTES 5 % (Not Estab.); *LYMPHS, ABSOLUTE 0.4 x10E3/uL (0.7-3.1); *MCH 34.3 pg (26.6-33.0); *MCHC 34.2 g/dL (31.5-35.7); *MCV 100 fL (79-97); *MONOCYTES 1 % (Not Estab.); *MONOS, ABSOLUTE 0.1 x10E3/uL (0.1-0.9); *NEUTROPHILS 94 % (Not Estab.); *NEUTROPHILS, ABSOLUTE 7.3 x10E3/uL (1.4-7.0); *PLT 200 x10E3/uL (150-379); *RBC 4.14 x10E6/uL (4.14-5.80); *RDW 14.5 % (12.3-15.4)
[2017-12-30 06:32] LABS: EOSINOPHILS % (AUTO) 0.1 % (0.0-6.0); HEMATOCRIT 38 % (39-51); HEMOGLOBIN 12.3 g/dL (13.5-17.5); LYMPHOCYTES # (AUTO) 0.2 /CMM (0.8-4.8); LYMPHOCYTES % (AUTO) 4.8 % (20.0-44.0); MEAN CORPUSCULAR HGB CONC 33 g/dl (31.0-36.0); MEAN CORPUSCULAR VOLUME 104 fL (80-96); MONOCYTES # (AUTO) 0.1 /CMM (0.1-1.30); MONOCYTES % (AUTO) 1.2 % (2.0-12.0); NEUTROPHILS # (AUTO) 4.3 /CMM (1.8-8.9); NEUTROPHILS % (AUTO) 93.9 % (43.0-81.0); PLATELET COUNT (AUTO) 179 /CMM (150-450); RDW COEFFICIENT OF VARIATION 14.8 (11.5-15.0); RED BLOOD CELL COUNT(AUTO) 3.61 MIL/uL (4.5-6.0); WHITE BLOOD COUNT (AUTO) 4.6 K/uL (4.3-11.0)
[2017-12-30 06:43] LABS: CALCIUM, SERUM 8.5 mg/dL (8.5-10.1); MAGNESIUM 2.3 mg/dL (1.8-2.4)
--- NOTE | 2017-12-30 06:45 | NUR ---
HEAT TREAT SUPERVISOR CLOSING NOTES PT AWAKE A/O X4 ; AMBULATORY, PT ON TELE SR CHRISTIANNE 55-59.PT ON O2 VIA NC 3L.IV R HAND #20. PT REFUSED IV FLUID 0.9 % NS. NO DISTRESS NOTED AT THIS TIME. SAFETY PRECAUTIONS IN PLACE, CALL LIGHT WITHIN REACH. WILL ENDORSE TO NEXT SHIFT FOR SOL.
[2017-12-30 06:49] LABS: THYROID STIMULATING HORMONE 0.945 uIU/mL (0.358-3.74)
[2017-12-30] MEDS: ALBUTEROL FS 2.5 MG/0.5 ML VIAL.NEB NEB SCH ×4 (07:10→19:52)
[2017-12-30 08:00] VITALS: BP 136/79
[2017-12-30 08:25] VITALS: BP 136/79
[2017-12-30] MEDS: FLUTICASONE/VILANTEROL 1 EACH BLST.W.DEV IH SCH (08:40)
[2017-12-30] MEDS: DAPSONE 25 MG TABLET PO SCH (08:42)
[2017-12-30] MEDS: methylPREDNISolone SOD SUCC 125 MG/2ML VIAL IV SCH ×3 (08:42→17:05)
--- NOTE | 2017-12-30 08:44 | NUR ---
RN NOTES ADMINISTERED MORPHINE 2 MG/ML IV PUSH FOR GENERALIZED PAIN 01/06 PER PATIENT REQUEST, V/S TAKE BP-136/79, P-72, CONTINUED MONITORING.
--- NOTE | 2017-12-30 09:31 | NUR ---
DIRECTOR OF ENTERPRISE ARCHITECTURE NOTES PT AWAKE, SITTING IN BED, NO SHORTNESS OF BREATH, NO COMPLAINT AT THIS TIME, CALL LIGHT WITHIN REACH.
[2017-12-30] MEDS ORDERED: IPRATROPIUM NEB FS 0.5 MG/2.5 ML AMPUL.NEB NEB SCH ×2 (10:30→11:30)
[2017-12-30] MEDS: IPRATROPIUM NEB FS 0.5 MG/2.5 ML AMPUL.NEB NEB SCH ×3 (11:37→19:52)
[2017-12-30] MEDS: GUAIFENESIN LA 600 MG TABLET.SA PO SCH ×2 (11:45→21:00)
[2017-12-30 16:00] VITALS: BP 125/74
[2017-12-30 16:18] LABS: *% CD 4 POS. LYMPH 6.2 % (30.8-58.5); *% CD 8 POS. LYMPH 33.7 % (12.0-35.5); *ABSOLUTE CD 4 HELPER 25 /uL (359-1519); *ABSOLUTE CD 8 SUPPRESSOR 135 /uL (109-897); *CD4/CD8 RATIO 0.18 (0.92-3.72)
[2017-12-30] MEDS: LEVOFLOXACIN 750 MG /D5W 150ML 750 MG in PREMIX 1 EA IV SCH (17:01)
--- NOTE | 2017-12-30 18:44 | NUR ---
GEOTHERMAL POWERPLANT SUPERVISOR CLOSING NOTES PATIENT SITTING UP IN BED, AOX4, BREATHING EVEN AND UNLABORED ON ROOM AIR, NC 3L WHEN NEEDED, PATIENT VERBALIZES FEELING MUCH BETTER TODAY AND HAVING NO DIFFICULTY BREATHING, NO SIGNIFICANT CHANGE DURING SHIFT, VITAL SIGNS STABLE. WILL ENDORSE TO NIGHT NURSE FOR SOL
--- NOTE | 2017-12-30 19:30 | NUR ---
RN NOTES RECEIVED PT. AWAKE ION BED, A/OX4, DENIES PAIN AT THIS TIME, NO SOB, ACLL LIGHT WITHIN REACH, [id number], CONTINUE TO MONITOR
[2017-12-30 20:00] VITALS: BP 132/75
--- NOTE | 2017-12-30 20:00 | NUR ---
RN NOTES PT. REFUSED TO BED BACK ON IV FLUID
[2017-12-30] MEDS: ENOXAPARIN SODIUM 40 MG/0.4 ML DISP.SYRIN SQ SCH (21:00)
[2017-12-30] MEDS: ACYCLOVIR 200 MG CAPSULE PO SCH (21:00)
[2017-12-30] MEDS ORDERED: AZITHROMYCIN 250 MG TABLET PO SCH (21:00)
[2017-12-30] MEDS: FLUCONAZOLE (100 MG) 100 MG TABLET PO SCH (21:00)
--- NOTE | 2017-12-30 21:07 | NUR ---
RN NOTES COMPLAINED OF GENERALIZED PAIN AND GAVE MORPHINE 2MG IV,V/S STABLE..PT. WAS UPSET BECAUSE PT. STATED THAT HE'S GETTING 4 MG IV BUT SINCE ADMISSION PT IS GETTING 2MG IV. WILL FOLLOW UP WITH
--- NOTE | 2017-12-30 21:35 | NUR ---
RN NOTES SPOKE TO DR. YOU REGARDING PT. COMPLAINED OF HIS MEDICATION. PT WANTS' TO INCREASE HIS MORPHINE TO 4 MG IV,.. DR. YOU DID NOT INCREASE THE MEDICATION
[2017-12-30] MEDS ORDERED: AZITHROMYCIN 250 MG TABLET ONE ×2 (21:54→21:55)
--- NOTE | 2017-12-30 22:30 | NUR ---
RN NOTES SPOKE TO SETH AND INFORMED HER THAT IF SHE CAN CHANGE THE DOSE TO 1250 MG PO, ORDER NOTED AND CARRIED OUT
[2017-12-31] MEDS: MORPHINE SULFATE INJ 4 MG/ML DISP.SYRIN IV PRN ×2 (01:01→05:00)
--- NOTE | 2017-12-31 01:03 | NUR ---
RN NOTES COMPLAINED OF GENERALIZED OAIN- MORPHINE 2 MG IV GIVEN ORDERED, V/S STABLE
--- NOTE | 2017-12-31 05:09 | NUR ---
RN NOTES COMPLAINED OF GENERALIZED PAIN- MORPHINE 2MG IV GIVEN ORDERED, V/S STABLE
--- NOTE | 2017-12-31 06:24 | NUR ---
RN NOTES SLEEPING BUT AROUSABLE, IV LINE PATENT NO REDNESS OR SWOLLEN, MORNING CARE RENDERED, PT. NEEDS ATTENDED
[2017-12-31] MEDS: IPRATROPIUM NEB FS 0.5 MG/2.5 ML AMPUL.NEB NEB SCH ×4 (07:25→20:03)
[2017-12-31] MEDS: ALBUTEROL FS 2.5 MG/0.5 ML VIAL.NEB NEB SCH ×4 (07:25→20:03)
[2017-12-31 07:41] LABS: HEMATOCRIT 39 % (39-51); LYMPHOCYTES # (AUTO) 0.3 /CMM (0.8-4.8); LYMPHOCYTES % (AUTO) 2.5 % (20.0-44.0); MEAN CORPUSCULAR HGB CONC 33 g/dl (31.0-36.0); MEAN CORPUSCULAR VOLUME 104 fL (80-96); MONOCYTES # (AUTO) 0.2 /CMM (0.1-1.30); MONOCYTES % (AUTO) 1.3 % (2.0-12.0); NEUTROPHILS # (AUTO) 13.2 /CMM (1.8-8.9); NEUTROPHILS % (AUTO) 96.2 % (43.0-81.0); PLATELET COUNT (AUTO) 225 /CMM (150-450); RDW COEFFICIENT OF VARIATION 14.9 (11.5-15.0); RED BLOOD CELL COUNT(AUTO) 3.79 MIL/uL (4.5-6.0); WHITE BLOOD COUNT (AUTO) 13.7 K/uL (4.3-11.0)
[2017-12-31 07:57] LABS: CALCIUM, SERUM 8.5 mg/dL (8.5-10.1); POTASSIUM 4.8 mmol/L (3.5-5.1)
[2017-12-31 08:00] VITALS: BP 126/61
--- NOTE | 2017-12-31 08:25 | NUR ---
MS RN INITIAL NOTES Patient ambulating independently. On room air, tolerating well, no shortness of breath. Aware of the risk and benefits concerning quit smoking. Patient was admitted on 12/29/17 for shortness of breath. Will cont to monitor.
[2017-12-31] MEDS ORDERED: AZITHROMYCIN 250 MG TABLET PO SCH ×2 (09:00)
[2017-12-31] MEDS: FLUTICASONE/VILANTEROL 1 EACH BLST.W.DEV IH SCH (09:03)
[2017-12-31] MEDS: DAPSONE 25 MG TABLET PO SCH (09:06)
[2017-12-31] MEDS: methylPREDNISolone SOD SUCC 125 MG/2ML VIAL IV SCH ×2 (09:12→13:10)
[2017-12-31] MEDS: GUAIFENESIN LA 600 MG TABLET.SA PO SCH ×2 (09:12→21:08)
--- NOTE | 2017-12-31 09:13 | NUR ---
Patient is irritable, per patient he wants to speak with the doctor who changed he's morphine from 4mg to 2mg, no previous records found 4mg started from this admission. Will inform .
[2017-12-31 09:58] LABS: ABG BASE EXCESS 1.9 mmol/L; ABG OXYGEN SATURATION 95.3 % (92.0-98.5); ABG PCO2 43.6 mmHg (35.0-45.0); ABG PH 7.409 (7.350-7.450); ABG PO2 87.4 mmHg (75.0-100.0); AaDO2 60.8 mmHg; MetHb 1.3 % (0.0-1.5); O2Hb 91.2 % (94.0-97.0); SITE, ABG Right Radial; VENT MODE, BG N/C
--- NOTE | 2017-12-31 10:27 | NUR ---
Patient is seen by CELESTINE Villavicencio, patient is leaving against medical advice. Per patient he will speak again to the doctor to discharge him. Informed CELESTINE Villavicencio. IV morphine was discontinued as ordered.
[2017-12-31] MEDS ORDERED: HYDROCODONE/APAP 5/325MG 1 EACH TABLET PO PRN (11:30)
[2017-12-31] MEDS ORDERED: HYDROCODONE/APAP 10/325MG 1 EA TABLET PO PRN (11:30)
--- NOTE | 2017-12-31 12:41 | NUR ---
Patient called for pain medication, when asked patient, stated he wants his shot. Offered oral [place], patient became verbally aggressive and use inappropriate words, stating he does need nurse at the same time picking up his food tray and place outside the room onto the floor, then slam the room door. Security was called, charge nurse was aware.
[2017-12-31 16:00] VITALS: BP 117/70
[2017-12-31] MEDS: LEVOFLOXACIN 750 MG /D5W 150ML 750 MG in PREMIX 1 EA IV SCH (16:00)
--- NOTE | 2017-12-31 18:30 | NUR ---
MS RN CLOSING NOTES Patient had dinner, good appetite. Ambulates independently. Intermittent use of oxygen 2L via NC, patient tolerating room air. Breathing treatment neb ATC per RT. Continued on IV antibiotic, ID following. Patient refusing IVF. Steroid tapered down, per pulmonology. HIV med Stribild, 1 tab. inside bottle from home sent to pharmacy, per sister she will bring more. Will endorse to oncoming RN.
--- NOTE | 2017-12-31 19:55 | NUR ---
MS/RN OPENING NOTES RECEIVED PATIETN IN THE ROOM, AMBULATORY, SITS IN BED, VERBALIZED NEEDS AND CONCERNS, ALERT, ORIENTED X3, RECEIVED REPORT FROM AM RN FOR SOL, PATIENT INFORMED REGARDING THERAPHY FOR BREATHING TX, WAS MADE AWARE AND RT WILL DO TREATMENT SCHEDULED, PATIENT DISCUSSED NEED AND HAVE ORDER FOR SMOKING PRIVELEGE, INFORMED THAT HE WILL BE ACCOMPANIED AND REPORTED TO CALL FOR ASSISTANCE, ABLE TO TOLERATE PAIN BUT VERBALIZED HAVING SEVERE PAIN BUT REFUSES TO TAKE PO MED OF NORCO ORDERED, MORPHINE WAS DISCONTINUE BY MD AND MADE AWARE, BUT WILL CONTINUE TO MONITOR FOR ANY PAIN AND DISCOMFORT.
[2017-12-31 20:00] VITALS: BP 123/70
[2017-12-31 20:04] VITALS: BP 123/70
[2017-12-31] MEDS: FLUCONAZOLE (100 MG) 100 MG TABLET PO SCH (21:08)
[2017-12-31] MEDS: ACYCLOVIR 200 MG CAPSULE PO SCH (21:08)
[2017-12-31] MEDS: ENOXAPARIN SODIUM 40 MG/0.4 ML DISP.SYRIN SQ SCH (21:13)
--- NOTE | 2018-01-01 06:25 | NUR ---
314-1MS/RN PATIENT SLEPT 4 TO 5 HOURS, ALERT, ORIENTERD, VERBALIZES NEEDS AT ALL TIMES, REFUSE TO TAKE PO NORCO PRESCRIBED, KEPT WITH ACTIVITY AND MONITORING FOR ANY CHANGES, REFUSE IV FLUIDS BUT ABLE TO DRINK AND TOLERATED WILL ENDORSE TO AM RN FOR SOL.
[2018-01-01 07:30] LABS: HEMATOCRIT 36 % (39-51); HEMOGLOBIN 11.8 g/dL (13.5-17.5); LYMPHOCYTES # (AUTO) 0.2 /CMM (0.8-4.8); MEAN CORPUSCULAR HGB CONC 33 g/dl (31.0-36.0); MEAN CORPUSCULAR VOLUME 103 fL (80-96); MONOCYTES # (AUTO) 0.2 /CMM (0.1-1.30); MONOCYTES % (AUTO) 2.6 % (2.0-12.0); NEUTROPHILS # (AUTO) 7.2 /CMM (1.8-8.9); NEUTROPHILS % (AUTO) 94.4 % (43.0-81.0); PLATELET COUNT (AUTO) 202 /CMM (150-450); RDW COEFFICIENT OF VARIATION 15.1 (11.5-15.0); RED BLOOD CELL COUNT(AUTO) 3.51 MIL/uL (4.5-6.0); WHITE BLOOD COUNT (AUTO) 7.6 K/uL (4.3-11.0)
[2018-01-01 07:36] LABS: CALCIUM, SERUM 8.1 mg/dL (8.5-10.1); CREATININE 0.9 mg/dL (0.6-1.3); POTASSIUM 4.3 mmol/L (3.5-5.1)
[2018-01-01 08:00] VITALS: BP 120/71
--- NOTE | 2018-01-01 08:00 | NUR ---
MS RN INITIAL NOTES Patient is up sitting in bed, had breakfast with good appetite. On room air, tolerating well, no shortness of breath. Appears calm, denies shortness of breath. Expressing he wants to go home today, will inform MD. Call light within reach.
[2018-01-01] MEDS: IPRATROPIUM NEB FS 0.5 MG/2.5 ML AMPUL.NEB NEB SCH ×3 (08:22→15:30)
[2018-01-01] MEDS: ALBUTEROL FS 2.5 MG/0.5 ML VIAL.NEB NEB SCH ×3 (08:23→15:30)
[2018-01-01] MEDS: FLUTICASONE/VILANTEROL 1 EACH BLST.W.DEV IH SCH (09:00)
[2018-01-01] MEDS: GUAIFENESIN LA 600 MG TABLET.SA PO SCH (09:00)
[2018-01-01] MEDS ORDERED: methylPREDNISolone SOD SUCC 40 MG/ML VIAL IV SCH (09:00)
[2018-01-01] MEDS: DAPSONE 25 MG TABLET PO SCH (09:00)
[2018-01-01] MEDS ORDERED: FLUC100T8 PO (11:25)
[2018-01-01] MEDS ORDERED: PRED20TA PO (11:25)
[2018-01-01] MEDS ORDERED: PRED5TAB48 PO (11:25)
[2018-01-01] MEDS ORDERED: LEVO750T46 PO (11:25)
[2018-01-01] MEDS ORDERED: ACYC200C PO (11:25)
[2018-01-01] MEDS ORDERED: AZIT250T PO (11:25)
--- NOTE | 2018-01-01 13:04 | NUR ---
MS ADULT EDUCATION TEACHER Patient has been cleared for discharge by , KYLIE stable. Ambulates independently, denies shortness of breath. Discharge instruction reviewed with patient, prescription given to patient, instructed to follow up with his Primary care physician in 1 week, verbalized understanding. Belongings checked and send with the patient upon DC. Patient left hosp in stable condition accompanied by his nephew via private car.
== END 2018-01-01 13:00 | disposition home or self-care (01) | DRG 892 ==
LOC: ER 13:24 → TELE 16:38 → MED 12-30 10:03
PROVIDERS: ADMIT Nurse Practitioner Acute Care; ATTEND Nurse Practitioner Acute Care
DX: J96.01 Acute respiratory failure with hypoxia (principal); B20 Human immunodeficiency virus [HIV] disease; N17.0 Acute kidney failure with tubular necrosis; J44.1 Chronic obstructive pulmonary disease with (acute) exacerbation; J98.11 Atelectasis; G89.29 Other chronic pain; Z88.2 Allergy status to sulfonamides; Z79.899 Other long term (current) drug therapy; I27.20 Pulmonary hypertension, unspecified; I34.0 Nonrheumatic mitral (valve) insufficiency; F12.90 Cannabis use, unspecified, uncomplicated; Z72.0 Tobacco use; D72.829 Elevated white blood cell count, unspecified; T38.0X5A Adverse effect of glucocorticoids and synthetic analogues, initial encounter; Y92.009 Unspecified place in unspecified non-institutional (private) residence as the place of occurrence of the external cause
CPT/HCPCS: 31720; 36415; 36600; 70486-TC; 71045-TC; 71250-TC; 80048-TC; 80061-TC; 80076-TC; 82803-TC; 83735-TC; 83880; 84100-TC; 84443-TC; 84484-TC; 85025-TC; 86360; 87081-TC; 90732; A4216; A4606; J1650; J1956; J2270; J2920; J2930; J7030; Q2036; Z7610